=== PATIENT | female | born 1975 | race Caucasian/White ===

== ENCOUNTER 2017-11-02 08:01 | Outpatient (CLI) | payer OTHER ==
[~2017-11-02 08:01] MED LIST: TOPROL XL25 M1; TOPROL XL25 M1 PO
== END 2017-11-02 09:42 | disposition home or self-care (01) ==
LOC: SONOGRAMA 08:01
DX: N39.46 Mixed incontinence (principal); R35.0 Frequency of micturition; R35.1 Nocturia

== ENCOUNTER 2017-11-02 08:04 | Outpatient (CLI) | payer OTHER | END 2017-11-02 09:40 | disposition home or self-care (01) | LOC: RAD 08:04 | DX: M54.5 Low back pain (principal) ==

== ENCOUNTER 2018-02-19 10:04 | Outpatient (CLI) | payer OTHER | END 2018-02-19 10:20 | disposition home or self-care (01) | LOC: MAMO-SONO 10:04 | DX: Z12.31 Encounter for screening mammogram for malignant neoplasm of breast (principal); N60.19 Diffuse cystic mastopathy of unspecified breast; N63.10 Unspecified lump in the right breast, unspecified quadrant; N63.11 Unspecified lump in the right breast, upper outer quadrant; N93.8 Other specified abnormal uterine and vaginal bleeding ==

== ENCOUNTER 2018-08-23 11:24 | Outpatient (CLI) | payer OTHER | END 2018-08-23 11:25 | disposition home or self-care (01) | LOC: SONOGRAMA 11:24 | DX: R10.11 Right upper quadrant pain (principal) ==